=== PATIENT | female | born 1945 | race Caucasian/White ===

== ENCOUNTER 2017-06-04 09:33 | Emergency (ER) | payer OTHER, MEDICARE ==
[~2017-06-04] VITALS: Ht 170.1 cm; Wt 74.8 kg
[~2017-06-04 09:33] MED LIST: ATIVAN1 MG PO; GLAUCOMA
[2017-06-04 10:01] LABS: HEMATOCRIT 40.3 % (37.0-47.0); HEMOGLOBIN 12.8 g/dl (12.0-16.0); MEAN CELL VOLUME 86.3 fl (81.0-99.0); MEAN CORPUSCULAR HGB 27.4 pg (27.0-31.0); MEAN CORPUSCULAR HGB CONC 31.8 g/dl (33.0-37.0); MEAN PLATELET VOLUME 10.3 fl (9.6-12.3); PLATELET COUNT AUTOMATED 239 10*3/uL (130-400); RED BLOOD COUNT 4.67 10*6/uL (4.10-5.10); RED CELL DISTRI WIDTH 14.6 % (0-14.5); WHITE BLOOD COUNT 10.4 10*3/uL (4.8-10.8)
[2017-06-04 10:11] LABS: ACT PARTIAL THROMBO TIME 27.4 SECONDS (20.8-31.5); INTERNATIONAL NORM RATIO 0.9 (2.0-3.5)
[2017-06-04 10:20] LABS: ALBUMIN 3.2 gm/dl (3.1-4.5); ALKALINE PHOSPHATASE 93 U/L (45-117); BUN 15 mg/dl (7-24); CHLORIDE 107 mmol/L (98-107); CREATININE 0.93 mg/dL (0.55-1.02); LIPASE 225 U/L (73-393); MAGNESIUM 2.2 mg/dL (1.5-2.1); POTASSIUM 3.9 mmol/L (3.5-5.1); SGOT/AST 16 IU/L (3-35); SGPT/ALT 17 U/L (12-78); SODIUM 139 mmol/L (136-145)
[2017-06-04 10:29] LABS: ATYPICAL LYMPHS 2 % (0-0); BASOPHILS 1 % (0-1); PLATELET SUFFICIENCY NORMAL (NORMAL); TOTAL CELLS COUNTED 100 #CELLS
[2017-06-04 10:34] LABS: TROPONIN I < 0.015 ng/ml (<0.045)
[2017-06-04] MEDS ORDERED: NORCO 5-325 TA1 EACH PO (12:21)
[2017-06-04] MEDS ORDERED: CYCLOBENZAPRINE10 MG PO (12:21)
== END 2017-06-04 13:00 | disposition home or self-care (01) ==
LOC: ED 09:33
PROVIDERS: Emergency Medicine
DX: S80.01XA Contusion of right knee, initial encounter (principal); S20.222A Contusion of left back wall of thorax, initial encounter; Z79.899 Other long term (current) drug therapy; Z88.0 Allergy status to penicillin; V49.88XA Car occupant (driver) (passenger) injured in other specified transport accidents, initial encounter; Y93.89 Activity, other specified; Y92.413 State road as the place of occurrence of the external cause; Y99.9 Unspecified external cause status

== ENCOUNTER 2024-11-05 23:01 | Inpatient (IN) | payer MEDICARE, OTHER ==
[~2024-11-05] VITALS: Ht 152.4 cm; Wt 90.5 kg
[~2024-11-05 23:01] MED LIST changes: +CYCLOBENZAPRINE10 MG PO; +CYCLOBENZAPRINE5 M3 PO; +NORCO 5-325 TA1 EACH PO
[2024-11-05 23:11] VITALS: BP 153/77
[2024-11-06] MEDS ORDERED: CALQUENCE100 M1 PO (00:28)
[2024-11-06] MEDS ORDERED: ZOLOFT25 MG PO (00:29)
[2024-11-06] MEDS ORDERED: SIMBRINZA 1%-0.28 M1 OP (00:30)
[2024-11-06] MEDS ORDERED: TRAVOPROST2.5 M1 OPH (00:31)
[2024-11-06] MEDS ORDERED: VITAMIN E PO (00:31)
[2024-11-06] MEDS ORDERED: VENT7GM INH (00:32)
[2024-11-06 00:37] LABS: BUN 18 mg/dl (9-23); CHLORIDE 100 mmol/L (98-107); POTASSIUM 3.7 mmol/L (3.4-5.1)
[2024-11-06 01:55] LABS: BILIRUBIN Negative (Negative); BLOOD Negative (Negative); CLARITY Cloudy (Clear); COLOR Yellow (Yellow); GLUCOSE Negative (Negative); KETONE Negative (Negative); LEUKO ESTERASE Negative (Negative); NITRITE Negative (Negative)
[2024-11-06 02:12] LABS: BACTERIA 2+; MUCOUS 1+
[2024-11-06] MEDS ORDERED: SODIUM CHLORIDE 0.9% 1,000 ML IV SCH (02:30)
[2024-11-06] MEDS ORDERED: ACETAMINOPHEN 325 MG TAB PO ONE (02:35)
[2024-11-06 02:38] LABS: HEMATOCRIT 27.8 % (37.0-47.0); MEAN CELL VOLUME 95.5 fl (81.0-99.0); MEAN CORPUSCULAR HGB 30.6 pg (27.0-31.0); MEAN PLATELET VOLUME 11.4 fl (9.6-12.3); PLATELET COUNT AUTOMATED 162 10*3/uL (130-400); RED BLOOD COUNT 2.91 10*6/uL (4.10-5.10); RED CELL DISTRI WIDTH 15.5 % (0-14.5); WHITE BLOOD COUNT 20.3 10*3/uL (4.8-10.8)
[2024-11-06 02:46] LABS: MANUAL DIFF REFLEX YES
[2024-11-06] MEDS ORDERED: Magnesium Hydroxide 30 ML UDC PO PRN (03:25)
[2024-11-06] MEDS ORDERED: ACETAMINOPHEN 650 MG SUPP R PRN (03:25)
[2024-11-06] MEDS ORDERED: BISACODYL 5 MG TAB PO PRN (03:25)
[2024-11-06] MEDS ORDERED: ACETAMINOPHEN 325 MG TAB PO PRN (03:25)
[2024-11-06] MEDS ORDERED: BISACODYL 10 MG SUPP R PRN (03:25)
[2024-11-06] MEDS ORDERED: Ondansetron Hydrochloride 4 MG/2 ML VIAL IV PRN (03:25)
[2024-11-06] MEDS ORDERED: Doxycycline Hyclate 100 MG CAP PO SCH (03:30)
[2024-11-06] MEDS ORDERED: Albuterol Sulf/Ipratropium 3 ML VIAL NEB ONE (03:30)
[2024-11-06] MEDS ORDERED: cefTRIAXone Sodium 1 GM in SYRINGE INFUSION 10 ML IV SCH (03:30)
[2024-11-06 04:33] VITALS: BP 111/49
[2024-11-06] MEDS ORDERED: cefTRIAXone Sodium 1 GM VIAL ONE (04:34)
[2024-11-06] MEDS ORDERED: Albuterol Sulf/Ipratropium 3 ML VIAL NEB PRN (05:40)
[2024-11-06 06:20] LABS: ALKALINE PHOSPHATASE 113 U/L (46-116); BUN 17 mg/dl (9-23); CHLORIDE 103 mmol/L (98-107); CHOLESTEROL 81 mg/dL (<200); FREE T4 1.21 ng/dl (0.89-1.76); SGPT/ALT 154 U/L (5-49); TRIGLYCERIDES 103 mg/dl (<150)
[2024-11-06 06:27] LABS: TOTAL CELLS COUNTED 100 #CELLS
[2024-11-06 06:29] LABS: PLATELET SUFFICIENCY NORMAL (NORMAL); ROULEAUX SLIGHT; TARGET CELLS FEW
[2024-11-06 06:33] LABS: ACT PARTIAL THROMBO TIME 36.6 SECONDS (20.0-32.1)
[2024-11-06 06:35] LABS: HEMATOCRIT 26.7 % (37.0-47.0); MEAN CORPUSCULAR HGB 30.2 pg (27.0-31.0); MEAN CORPUSCULAR HGB CONC 31.5 g/dl (33.0-37.0); MEAN PLATELET VOLUME 11.3 fl (9.6-12.3); PLATELET COUNT AUTOMATED 132 10*3/uL (130-400); RED BLOOD COUNT 2.78 10*6/uL (4.10-5.10); RED CELL DISTRI WIDTH 15.6 % (0-14.5); WHITE BLOOD COUNT 11.3 10*3/uL (4.8-10.8)
[2024-11-06 06:36] LABS: LDL CHOLESTEROL 44 mg/dL (9-159)
[2024-11-06 06:43] LABS: MANUAL DIFF REFLEX YES
[2024-11-06 07:24] LABS: ATYPICAL LYMPHS 3 % (0-0); PLATELET SUFFICIENCY NORMAL (NORMAL); ROULEAUX SLIGHT; TOTAL CELLS COUNTED 100 #CELLS
[2024-11-06] MEDS ORDERED: BRINZOLAMIDE OPH SCH (10:00)
[2024-11-06] MEDS ORDERED: Sertraline Hydrochloride 50 MG TAB PO SCH (10:00)
[2024-11-06] MEDS ORDERED: BRIMONIDINE OPH SCH (10:00)
[2024-11-06] MEDS ORDERED: Enoxaparin Sodium 40 MG/0.4 ML SYR SC SCH (10:00)
[2024-11-06] MEDS ORDERED: Acetaminophen/Hydrocodone 5 MG/325 MG TABLET PO PRN (10:50)
[2024-11-06 21:42] VITALS: BP 131/60
[2024-11-06 22:45] VITALS: BP 135/87
[2024-11-07] MEDS ORDERED: PROBIOTIC250 MG PO (01:49)
[2024-11-07] MEDS ORDERED: cefTRIAXone Sodium 1 GM VIAL ONE (05:10)
[2024-11-07] MEDS ORDERED: Albuterol Sulf/Ipratropium 3 ML VIAL NEB SCH (05:40)
[2024-11-07 06:34] LABS: BUN 15 mg/dl (9-23); CHLORIDE 105 mmol/L (98-107); POTASSIUM 3.4 mmol/L (3.4-5.1)
[2024-11-07 06:43] LABS: HEMATOCRIT 27.9 % (37.0-47.0); MEAN CELL VOLUME 97.9 fl (81.0-99.0); MEAN CORPUSCULAR HGB 29.8 pg (27.0-31.0); MEAN CORPUSCULAR HGB CONC 30.5 g/dl (33.0-37.0); MEAN PLATELET VOLUME 11.1 fl (9.6-12.3); PLATELET COUNT AUTOMATED 169 10*3/uL (130-400); RED BLOOD COUNT 2.85 10*6/uL (4.10-5.10); WHITE BLOOD COUNT 16.1 10*3/uL (4.8-10.8)
[2024-11-07 06:48] LABS: MANUAL DIFF REFLEX YES
[2024-11-07 07:56] LABS: ATYPICAL LYMPHS 4 % (0-0); OVALOCYTES FEW; PLATELET SUFFICIENCY NORMAL (NORMAL); POLYCHROMASIA SLIGHT; TOTAL CELLS COUNTED 100 #CELLS
[2024-11-07 08:00] VITALS: BP 114/72
[2024-11-07] MEDS ORDERED: GUAIFENESIN 600 MG TAB ER PO SCH (10:00)
[2024-11-07 12:00] VITALS: BP 126/61
[2024-11-07] MEDS ORDERED: MED. FROM HOME 1 EACH EA PO SCH (13:00)
[2024-11-07 16:00] VITALS: BP 132/47
[2024-11-07 20:00] VITALS: BP 132/47; BP 146/65
[2024-11-08] VITALS: BP 103/92
[2024-11-08 04:00] VITALS: BP 100/82
[2024-11-08 06:10] LABS: BUN 13 mg/dl (9-23); CHLORIDE 105 mmol/L (98-107); POTASSIUM 3.4 mmol/L (3.4-5.1)
[2024-11-08 07:08] LABS: HEMATOCRIT 27.1 % (37.0-47.0); MEAN CELL VOLUME 98.9 fl (81.0-99.0); MEAN CORPUSCULAR HGB 30.3 pg (27.0-31.0); MEAN CORPUSCULAR HGB CONC 30.6 g/dl (33.0-37.0); NUCLEATED RED BLOOD CELL 0.1 % (0.0-0.0); PLATELET COUNT AUTOMATED 182 10*3/uL (130-400); RED BLOOD COUNT 2.74 10*6/uL (4.10-5.10); RED CELL DISTRI WIDTH 16.4 % (0-14.5); WHITE BLOOD COUNT 19.7 10*3/uL (4.8-10.8)
[2024-11-08 07:10] LABS: MANUAL DIFF REFLEX YES
[2024-11-08 08:00] VITALS: BP 133/56
[2024-11-08 08:19] LABS: TOTAL CELLS COUNTED 100 #CELLS
[2024-11-08 08:20] LABS: PLATELET SUFFICIENCY NORMAL (NORMAL); POLYCHROMASIA SLIGHT
[2024-11-08 08:21] LABS: OVALOCYTES FEW; ROULEAUX SLIGHT
[2024-11-08 12:00] VITALS: BP 126/46
[2024-11-08 16:00] VITALS: BP 134/49
[2024-11-08 20:00] VITALS: BP 138/67
[2024-11-09] VITALS: BP 122/72
[2024-11-09 01:15] VITALS: BP 105/89
[2024-11-09] MEDS ORDERED: AIRSUPRA 90-810.7 GM INH (01:51)
[2024-11-09 07:09] LABS: BUN 13 mg/dl (9-23); CHLORIDE 106 mmol/L (98-107); POTASSIUM 3.4 mmol/L (3.4-5.1)
[2024-11-09 08:00] VITALS: BP 145/62
[2024-11-09 12:00] VITALS: BP 121/61
[2024-11-09 16:00] VITALS: BP 132/67
[2024-11-09 20:00] VITALS: BP 142/60
[2024-11-10] VITALS: BP 105/59
[2024-11-10 06:24] LABS: HEMATOCRIT 27.6 % (37.0-47.0); MEAN CELL VOLUME 99.6 fl (81.0-99.0); MEAN CORPUSCULAR HGB 30.3 pg (27.0-31.0); MEAN CORPUSCULAR HGB CONC 30.4 g/dl (33.0-37.0); MEAN PLATELET VOLUME 10.9 fl (9.6-12.3); PLATELET COUNT AUTOMATED 211 10*3/uL (130-400); RED BLOOD COUNT 2.77 10*6/uL (4.10-5.10); RED CELL DISTRI WIDTH 16.5 % (0-14.5); WHITE BLOOD COUNT 24.2 10*3/uL (4.8-10.8)
[2024-11-10 06:29] LABS: MANUAL DIFF REFLEX YES
[2024-11-10 07:10] LABS: BASOPHILS 1 % (0-1); POLYCHROMASIA SLIGHT; TOTAL CELLS COUNTED 100 #CELLS
[2024-11-10 07:11] LABS: BURR CELLS FEW; OVALOCYTES FEW; PLATELET SUFFICIENCY NORMAL (NORMAL)
[2024-11-10 07:13] LABS: BUN 14 mg/dl (9-23); CHLORIDE 108 mmol/L (98-107); POTASSIUM 3.7 mmol/L (3.4-5.1)
[2024-11-10 08:00] VITALS: BP 126/47
[2024-11-10 12:00] VITALS: BP 138/54
[2024-11-10 16:00] VITALS: BP 159/67
[2024-11-10] MEDS ORDERED: BUDESONIDE 0.5 MG AMP NEB SCH (18:00)
[2024-11-10 20:00] VITALS: BP 96/50
[2024-11-11] VITALS: BP 121/45
[2024-11-11 06:09] LABS: HEMATOCRIT 29.6 % (37.0-47.0); MEAN CELL VOLUME 101.4 fl (81.0-99.0); MEAN CORPUSCULAR HGB 30.8 pg (27.0-31.0); MEAN CORPUSCULAR HGB CONC 30.4 g/dl (33.0-37.0); MEAN PLATELET VOLUME 10.4 fl (9.6-12.3); PLATELET COUNT AUTOMATED 215 10*3/uL (130-400); RED BLOOD COUNT 2.92 10*6/uL (4.10-5.10); RED CELL DISTRI WIDTH 16.6 % (0-14.5); WHITE BLOOD COUNT 31.4 10*3/uL (4.8-10.8)
[2024-11-11 06:14] LABS: MANUAL DIFF REFLEX YES
[2024-11-11 06:54] LABS: BUN 12 mg/dl (9-23); CHLORIDE 111 mmol/L (98-107); POTASSIUM 3.7 mmol/L (3.4-5.1)
[2024-11-11 07:24] LABS: PLATELET SUFFICIENCY NORMAL (NORMAL); TOTAL CELLS COUNTED 100 #CELLS
[2024-11-11 08:00] VITALS: BP 115/48
[2024-11-11 12:00] VITALS: BP 155/62
[2024-11-11 16:00] VITALS: BP 140/60
[2024-11-11 20:00] VITALS: BP 122/86; BP 136/56
[2024-11-12] VITALS: BP 121/55
[2024-11-12 06:25] LABS: HEMATOCRIT 29.2 % (37.0-47.0); MEAN CELL VOLUME 101.4 fl (81.0-99.0); MEAN CORPUSCULAR HGB 30.2 pg (27.0-31.0); MEAN CORPUSCULAR HGB CONC 29.8 g/dl (33.0-37.0); MEAN PLATELET VOLUME 10.2 fl (9.6-12.3); NUCLEATED RED BLOOD CELL 0.1 % (0.0-0.0); PLATELET COUNT AUTOMATED 222 10*3/uL (130-400); RED BLOOD COUNT 2.88 10*6/uL (4.10-5.10); RED CELL DISTRI WIDTH 16.7 % (0-14.5)
[2024-11-12 06:30] LABS: MANUAL DIFF REFLEX YES; WHITE BLOOD COUNT 39.1 10*3/uL (4.8-10.8)
[2024-11-12 06:35] LABS: BUN 16 mg/dl (9-23); CHLORIDE 110 mmol/L (98-107); POTASSIUM 4.3 mmol/L (3.4-5.1)
[2024-11-12 08:00] VITALS: BP 134/51
[2024-11-12 08:17] LABS: PLATELET SUFFICIENCY NORMAL (NORMAL); TOTAL CELLS COUNTED 100 #CELLS
[2024-11-12 12:00] VITALS: BP 152/69
[2024-11-12 16:00] VITALS: BP 142/83
[2024-11-12 20:00] VITALS: BP 126/60
[2024-11-13] VITALS: BP 129/53
[2024-11-13 08:00] VITALS: BP 139/77
[2024-11-13] MEDS ORDERED: MUCUS RELIEF E600 MG PO (11:41)
[2024-11-13] MEDS ORDERED: VIBRA-TAB100 MG PO (11:41)
[2024-11-13] MEDS ORDERED: ALBUTEROL2.5 MG/0.5 INH (16:08)
== END 2024-11-13 12:45 | disposition home or self-care (01) | DRG 871 ==
LOC: ED 23:01 → 4E 11-06 03:12 → EDHOLD 11-06 03:12 → 4E 11-06 21:47
PROVIDERS: Emergency Medicine; Internal Medicine; Student in an Organized Health Care Education/Training Program; ADMIT Internal Medicine; ATTEND Internal Medicine
DX: A41.9 Sepsis, unspecified organism (principal); E43 Unspecified severe protein-calorie malnutrition; J15.69 Pneumonia due to other Gram-negative bacteria; J96.01 Acute respiratory failure with hypoxia; E87.1 Hypo-osmolality and hyponatremia; C91.10 Chronic lymphocytic leukemia of B-cell type not having achieved remission; J21.9 Acute bronchiolitis, unspecified; J90 Pleural effusion, not elsewhere classified; J98.11 Atelectasis; F41.9 Anxiety disorder, unspecified; R73.9 Hyperglycemia, unspecified; R65.20 Severe sepsis without septic shock; R74.01 Elevation of levels of liver transaminase levels; Z20.822 Contact with and (suspected) exposure to COVID-19; E66.9 Obesity, unspecified; J98.4 Other disorders of lung; D64.9 Anemia, unspecified; B00.9 Herpesviral infection, unspecified; E87.6 Hypokalemia; Z96.651 Presence of right artificial knee joint; Z88.0 Allergy status to penicillin; Z88.8 Allergy status to other drugs, medicaments and biological substances; Z79.899 Other long term (current) drug therapy; Z79.01 Long term (current) use of anticoagulants; Z68.38 Body mass index [BMI] 38.0-38.9, adult; Z79.2 Long term (current) use of antibiotics

== ENCOUNTER → 2025-01-19 | Outpatient (CLI) | payer MEDICARE, OTHER ==
[~2025-01-19] MED LIST changes: +AIRSUPRA 90-810.7 GM INH; +ALBUTEROL2.5 MG/0.5 INH; +CALQUENCE100 M1 PO; +MUCUS RELIEF E600 MG PO; +PROBIOTIC250 MG PO; +SIMBRINZA 1%-0.28 M1 OP; +TRAVOPROST2.5 M1 OPH; +VENT7GM INH; +VIBRA-TAB100 MG PO; +VITAMIN E PO; +ZOLOFT25 MG PO
== END | disposition home or self-care (01) ==
LOC: CT 01-08 10:00
PROVIDERS: ATTEND Internal Medicine Critical Care Medicine
DX: R59.0 Localized enlarged lymph nodes (principal); C91.10 Chronic lymphocytic leukemia of B-cell type not having achieved remission; J30.89 Other allergic rhinitis; R91.8 Other nonspecific abnormal finding of lung field; Z68.35 Body mass index [BMI] 35.0-35.9, adult; R16.1 Splenomegaly, not elsewhere classified